=== PATIENT | female | born 1995 | race Caucasian/White ===

== ENCOUNTER → 2017-01-31 | Outpatient (CLI) | payer BC | LOC: CIMAGING 14:35 | PROVIDERS: ATTEND Orthopaedic Surgery | DX: M84.375D Stress fracture, left foot, subsequent encounter for fracture with routine healing (principal) | CPT/HCPCS: 73700-PO ==

== ENCOUNTER → 2017-03-12 | Outpatient (CLI) | payer BC | LOC: FIMAGING 14:41 | PROVIDERS: ATTEND Orthopaedic Surgery | DX: M84.375D Stress fracture, left foot, subsequent encounter for fracture with routine healing (principal) ==

== ENCOUNTER 2017-07-28 06:01 | Emergency (ER) | payer BC ==
[2017-07-28 06:12] VITALS: RESP 18
--- NOTE | 2017-07-28 06:15 | EDPHY ---
H & P Stated Complaint: CP 2300, ALBUTEROL 0500- GOT WORSE. BLOOD CLOT IN PICC LINE Source: Patient - Personal History LMP (Females 10-55): 8-14 Days Ago Current Tetanus/Diphtheria Vaccine: Yes - Medical/Surgical History Hx Asthma: No Hx Chronic Respiratory Disease: Yes Hx Diabetes: No Hx Cardiac Disease: No Hx Renal Disease: No Hx Cirrhosis: No Hx Alcoholism: No Hx HIV/AIDS: No Hx Splenectomy or Spleen Trauma: No Other PMH: CYSTIC FIBROSIS, FX FOOT SURG, ONE KIDNEY, BLOOD CLOT RIGHT ARM/PICC SITE 06/20 - Social History Smoking Status: Never smoked HPI/ROS: HPI CHIEF COMPLAINT: Pain in chest HISTORY OF PRESENT ILLNESS: This patient very pleasant 22-year-old female she presents emergency room with discomfort in her chest. Patient reports that this discomfort woke her up at 5:00 a.m.. She describes a dull achy sensation that moves around her chest. States this started around 11pm. She states it was worse when she laid on her left side. She has been coughing but with out any productive sputum. She has not had any fever. She has not felt ill. This discomfort woke her from sleep. She took an albuterol treatment in the pain got worse. She called her cystic fibrosis Doctor will call her clinic and she was advised to come to the emergency room to obtain a CT angiogram of her chest. Patient states that she had a PICC line in May that was removed and subsequently complication from that developed a blood clot. She is on Eliquis. She has never had a pulmonary embolism. She denies hemoptysis. Denies sputum production. She does state that she ran a 10 mi run yesterday. Past Medical History: CF, PICC LINE Blood Clot in Jun. On Eliquis. Past Surgical History: Patient did have surgery on her foot in January. Social History: Family resides here she is visiting for vacation from [place]. She goes to school in [place]. Family History: Noncontributory ROS REVIEW OF SYSTEMS: A comprehensive 10 point review of systems is otherwise negative aside from elements mentioned in the history of present illness. Exam Constitutional appears well nontoxic, triage nursing summary reviewed, vital signs reviewed, awake/alert. Vital signs are noted. No hypoxia. Eyes normal conjunctivae and sclera, EOMI, PERRLA. HENT normal inspection, atraumatic, moist mucus membranes, no epistaxis, neck supple/ no meningismus, no raccoon eyes. Respiratory clear to auscultation bilaterally, normal breath sounds, no respiratory distress, no wheezing. Cardiovascular rate normal, regular rhythm, no murmur, no edema, distal pulses normal. Gastrointestinal soft, non-tender, no rebound, no guarding, normal bowel sounds, no distension, no pulsatile mass. Genitourinary no CVA tenderness. Musculoskeletal no midline vertebral tenderness, full range of motion, no calf swelling, no tenderness of extremities, no meningismus, good pulses, neurovascularly intact. Skin pink, warm, & dry, no rash, skin atraumatic. Neurologic awake, alert and oriented x 3, AAOx3, moves all 4 extremities equally, motor intact, sensory intact, CN II-XII intact, normal cerebellar, normal vision, normal speech. Psychiatric normal mood/affect. Heme/Lymph/Immune no lymphadenopathy. Differential Diagnosis: Includes includes but is not limited to in a particular order pneumonia, pleurisy, pneumothorax, reactive airway disease, bronchitis, upper respiratory tract infection, pulmonary embolism. Medical Decision Making: Patient reports to me that she was specifically sent here for CT angiogram of her chest rule out pulmonary embolism. When I discussed doing a D-dimer she states that does not work in CF patient's and her CF Dr. specifically requested that we do a CT angiogram of her chest. Re-evaluation: 06: Upon arrival to the emergency room this patient appears well nontoxic in no acute distress with clear lung sounds bilaterally. Does have a small bronchitic sounding cough. Vital signs are stable. No hypoxia. EKG interpretation by me on record in [employer] system. Impression time of EKG 6:32 a.m., sinus rhythm rate of 72. LVH present. No acute ischemic change appreciated. 0700AM: Patient signed over to Dr. Wilson at 7:00 a.m. shift change. Follow- up CT angiogram and blood work. If the CT angiogram does not show pulmonary embolism or active infection and blood work is normal I believe this patient go home. She did run 10 miles today from [place] and that may be the cause of her chest discomfort. However given that she has CF patient will need to rule out pulmonary embolism and pneumonia versus a mucous plugging. ED x-ray chest one view: Negative for acute cardiopulmonary disease. Patient signed over to Dr. Wilson at 7:00 a.m. shift change follow-up the CT angiogram. The CT angiogram is negative patient go home. (Jose Carlos Hurst) Constitutional: Initial Vital Signs Temperature (C) 36.7 C 07/28/17 06:07 Heart Rate 75 07/28/17 06:07 Respiratory Rate 18 07/28/17 06:07 Blood Pressure 138/89 H 07/28/17 06:07 O2 Sat (%) 95 07/28/17 06:07 O2 Delivery Mode Room Air Allergies/Adverse Reactions: No Known Allergies Allergy (Unverified 07/28/17 06:06) Home Medications: Medication Instructions Recorded Budesonide/Formoterol 160/4.5 1 puffs IH BID 05/12/11 [Symbicort 160-4.5 Mcg Inhaler] Lipase/Protease/Amylase [CREON 20 497 mg PO 05/12/11 EC CAPSULE] Albuterol 07/28/17 Amoxicillin/Clavulanate Pot 875 mg PO BID #27 tab 07/28/17 [Augmentin 875 MG TAB (*)] Bactrim DS 07/28/17 Eliquis 07/28/17 Fluconazole 07/28/17 Omeprazole 07/28/17 Prednisone 07/28/17 Pulmozyme 07/28/17 Medical Decision Making Other Provider: I assumed care of this patient from Dr. Hurst at 7:[address] angiogram results were pending at that time. The study was reported to me is negative for PE. There was concern for right lower lobe infiltrate/pneumonia. I spoke with the patient, her father, and the patient's cystic fibrosis specialist in [place]. Has been recommended that she start on Augmentin. I have written a prescription and she has been given her 1st dose here in the emergency department. She and her father understands the danger signs that should prompt her to return immediately. She will follow up with her specialists in [place] and will contact them by telephone later this week. At the time of my examination she is awake and alert, afebrile, lungs are clear to auscultation, heart regular. She has not been hypoxic. She is not tachypneic. I feel that she can safely be discharged home. (Ruth Wilson) - Data Points Laboratory Results: Laboratory Results 07/28/17 06:32 07/28/17 06:32 Medications Given: Discontinued Medications Amoxicillin/Clavulanate Potassium (Augmentin 875mg) 875 mg PO EDNOW ONE PRN Reason: Protocol Stop: 07/28/17 09:08 Last Admin: 07/28/17 09:09 Dose: 875 mg Sodium Chloride (Ns) 1,000 mls @ 0 mls/hr IV EDNOW ONE; Wide Open PRN Reason: Protocol Stop: 07/28/17 06:20 Last Admin: 07/28/17 06:41 Dose: 1,000 mls Departure - Departure Disposition: Home, Routine, Self-Care Clinical Impression: Right lower lobe pneumonia Qualifiers: Pneumonia type: due to unspecified organism Qualified Code(s): J18.1 - Lobar pneumonia, unspecified organism Condition: Good Instructions: Pneumonia (ED) Additional Instructions: 1. Take Augmentin (antibiotic) 2 times daily for 2 weeks. Continue taking the full course of antibiotic even if you experience improvement. 2. Call your employee relations specialist later this week to update them. 3. Return to the emergency room if you have any worsening symptoms, questions, or concerns. Referrals: DR KARRIE [Other] - As per Instructions Prescriptions: Amoxicillin/Clavulanate Pot [Augmentin 875 MG TAB (*)] 875 mg PO BID #27 tab
[2017-07-28] MEDS ORDERED: NS 1,000 ML IV ONE (06:19)
--- NOTE | 2017-07-28 06:33 | CPEKG ---
Heart Rate: 72 RR Interval: 833 P-R Interval: 172 QRSD Interval: 84 QT Interval: 400 QTC Interval: 438 P Spencer: 66 QRS Spencer: 58 T Wave Spencer: 40 EKG Severity - ABNORMAL ECG - EKG Impression: SINUS RHYTHM EKG Impression: CONSIDER LEFT VENTRICULAR HYPERTROPHY Electronically Signed By: Danitza Dubose 28-Jul-2017 22:50:05
[2017-07-28 06:39] LABS: PLATELET COUNT 198 10^3/uL (150-400)
[2017-07-28 06:51] LABS: INR 0.87 (0.83-1.16); PROTIME(PATIENT) 12.1 SEC (12.0-15.0)
[2017-07-28 06:55] LABS: CREATINE KINASE 106 IU/L (0-156)
[2017-07-28] MEDS ORDERED: IOPAMIDOL (ISOVUE 370) 100 ML BTL IV ONE (06:56)
[2017-07-28] MEDS ORDERED: AMOXICILLIN/CLAVULANATE POT 875/125 MG TAB PO ONE ×2 (09:06→09:07)
[2017-07-28 09:19] VITALS: BP 122/77; PULSE 87; TEMP 98.4; O2SAT 97
== END 2017-07-28 09:11 | disposition home or self-care (01) ==
DX: J18.9 Pneumonia, unspecified organism (principal); E86.9 Volume depletion, unspecified
CPT/HCPCS: Q9967